=== PATIENT | male | born 1975 | race Caucasian/White ===

== ENCOUNTER → 2018-12-03 | Day surgery (SDC) | payer OTHER | LOC: MSO 07:31 | DX: D12.2 Benign neoplasm of ascending colon (principal); Z79.899 Other long term (current) drug therapy; Z79.82 Long term (current) use of aspirin; K64.8 Other hemorrhoids; E66.01 Morbid (severe) obesity due to excess calories | CPT/HCPCS: 00811; J2704; J7120 ==